=== PATIENT | female | born 1960 | race Caucasian/White ===

== ENCOUNTER 2024-07-23 09:30 | Day surgery (SDC) | payer MEDICARE, OTHER ==
[2024-07-23] VITALS (10 sets, daily range): BP systolic 120–142; BP diastolic 62–78; PULSE 64–77; RESP 14–20; TEMP 97.2–98.2
[~2024-07-23] VITALS: Ht 165.1 cm; Wt 58.5 kg
[2024-07-23] MEDS: 0.9%NACL 1000ML 1,000 ML IV ONE (09:54)
[2024-07-23] MEDS ORDERED: ALPR0.255 PO (09:57)
[2024-07-23] MEDS ORDERED: TIZA4CAP8 PO (09:57)
[2024-07-23] MEDS ORDERED: BUTA-256 PO (09:57)
[2024-07-23] MEDS ORDERED: TRAZ-187 PO (09:57)
[2024-07-23] MEDS ORDERED: DULO60CA64 PO (09:57)
[2024-07-23] MEDS ORDERED: proPOFol 10 MG/ML 20ML VIAL IV ONE (11:53)
[2024-07-23] MEDS ORDERED: FENTanyl CITRate PF 50 MCG/1 ML 2ML VIAL ONE (11:53)
[2024-07-23] MEDS ORDERED: ondanSETRON 4MG INJ ONE (11:54)
[2024-07-23] MEDS ORDERED: IOHEXOL-350 50ML VIAL IV ONE (12:54)
--- NOTE | 2024-07-23 14:59 | HMCIMG ---
ERCP BILI/PANC DUCT REASON: BILIARY Stricture, other ABNORMAL TUMOR MARKERS. COMPARISON: None TECHNIQUE: ERCP was performed by referring physician. FINDINGS: Please see procedure report for referring physician. IMPRESSION: ERCP.
[2024-07-23] MEDS: INDOMETHACIN 100 MG SUPP.RECT RC ONE (15:16)
[2024-07-24] MEDS ORDERED: LACT10SO85 PO (18:15)
== END 2024-07-23 13:58 | disposition home or self-care (01) ==
LOC: SUH 09:30 → DAH 09:30 → SUH 13:58
PROVIDERS: ATTEND Internal Medicine Gastroenterology
DX: K83.1 Obstruction of bile duct (principal); R97.8 Other abnormal tumor markers; K83.09 Other cholangitis; K83.9 Disease of biliary tract, unspecified; K92.2 Gastrointestinal hemorrhage, unspecified; M81.0 Age-related osteoporosis without current pathological fracture; F41.9 Anxiety disorder, unspecified; F32.A Depression, unspecified; Z90.710 Acquired absence of both cervix and uterus; Z98.42 Cataract extraction status, left eye; Z98.41 Cataract extraction status, right eye; Z79.899 Other long term (current) drug therapy
CPT/HCPCS: 43276; 74330; 43261; 43273; J3010; J7030; J2704; J2405; Q9967; A4649; A4215 ×2; A4223; A4657 ×2; A7002; A4222; A4221; A4663; C1875; A4606; C1769; C1773; 43274; 43275; J3490

== ENCOUNTER 2024-07-24 12:24 | Emergency (ER) | payer MEDICARE, OTHER ==
[~2024-07-24] VITALS: Ht 167.6 cm; Wt 59.0 kg
[~2024-07-24 12:24] MED LIST: ALPR0.255 PO; BUTA-256 PO; DULO60CA64 PO; TIZA4CAP8 PO; TRAZ-187 PO
[2024-07-24] MEDS: LACTATED RINGERS 1000ML 1,000 ML IV ONE (12:50)
--- NOTE | 2024-07-24 12:59 | ERN ---
General Chief Complaint: Abdominal Pain Stated Complaint: ABD PAIN POST OP SURGERY Time Seen by MD: 12:25 Source: patient History of Present Illness Initial Comments PATIENT IS A 63-YEAR-OLD FEMALE COMING IN WITH THE ABDOMINAL PAIN. PER PATIENT SHE WAS SENT OVER BY DR. Moralez. Patient states that she has a extensive history of problems with the bile duct. Patient states that this has been ongoing and multiple exams to be performed patient was sent over for possibility of a GI bleed. Allergies: Coded Allergies: No Known Allergies (Unverified Allergy, Unknown, 07/21/24) Home Meds Reported Medications Duloxetine HCl (Duloxetine HCl) 60 Mg Capsule.dr, 1 CAP PO DAILY for 30 Days, #30 CAP 0 Refills 07/23/24 Alprazolam (Alprazolam) 0.25 Mg Tablet, 1 TAB PO BID PRN for anxiety for 30 Days, #30 TAB 0 Refills 07/23/24 Butalb/Acetaminophen/Caffeine (Mjkwlo-Gixgdxlk-Kahx 50-325-40) 50 Mg-325 Mg-40 Mg Tablet, 1 EACH PO EVERY 8 HOURS, TAB 07/23/24 Trazodone HCl (Trazodone HCl) 100 Mg Tablet, 1 TAB PO HS for 30 Days, #30 TAB 0 Refills 07/23/24 Tizanidine HCl (Tizanidine HCl) 4 Mg Capsule, 4 MG PO BID, CAP 07/23/24 Past Medical History Past Medical History: No Pertinent History Past Surgical History: Appendectomy, Hysterectomy, Other Surgical History Other: ERCP ROS Dictation CONSTITUTIONAL: No chills, no fever, no weakness, no diaphoresis, no malaise. HEAD/FACE: No signs of trauma. EENT: No eye pain, no blurred vision, no tearing, no double vision, no ear pain, no ear discharge, no nose pain, no nasal congestion, no throat pain, no throat swelling, no mouth pain. RESPIRATORY: No cough, no orthopnea, no SOB, no stridor, no wheezing. CARDIOVASCULAR: No chest pain, no edema, no palpitations, no syncope. GASTROINTESTINAL/ABDOMINAL: abdominal pain, no constipation, no diarrhea, no nausea, no vomiting. GENITOURINARY: No abnormal discharge, no dysuria, no frequent urination, no hematuria. No complaints of pain in the genitals. MUSCULOSKELETAL: No back pain, no gout, no joint pain, no joint swelling, no muscle pain, no muscle stiffness, no neck pain. INTEGUMENTARY: No change in color, no change in hair/nails, no dryness, no lesion, no lumps, no rash. NEUROLOGICAL/PSYCH: No anxiety, not depressed, no emotional problem, no headache, no numbness, no pre-existing deficit, no history of seizures, no tremors, no weakness. HEMATOLOGIC/LYMPHATIC: Not anemic, no history of blood clots, no apparent bleeding, no bruising, glands not swollen. All Systems Negative, Except as Noted. Physical Exam Physical Exam Dictation VITAL SIGNS: Reviewed. GENERAL APPEARANCE: Alert, oriented x3, no acute distress, obese. HEAD AND FACE: Non-traumatic. EYES: PERRL, pink conjunctivas, eyelid no trauma, anterior chamber clear. EARS: Pinnas intact and no signs of trauma or erythema. Ear canals clear and no discharge. TMs no erythema. NOSE: No discharge, no bleeding. OROPHARYNX: Mouth normal, teeth no caries, tongue pink. Pharynx clear, no erythema. Tonsils no exudates, no abscesses noted. Mucous membrane moist. NECK: Supple, non-tender, no thyromegaly, no masses, no JVD, no bruits. BREAST: Deferred. CHEST: No tenderness, no crepitus, no paradoxical movement, no retractions. LUNGS: Clear, well-ventilated, symmetric, no rales, no wheezing, no rhonchi, no stridor, good breath sounds bilaterally. HEART: Regular rate, regular rhythm, no murmur, no gallops. VASCULAR: No peripheral edema. ABDOMEN: Soft, positive bowel sounds, nondistended, no guarding, right upper quadrant tenderness, no rebound, no masses no hepatomegaly, no splenomegaly, no Joaquin's sign, no hernias. RECTAL: Deferred. GENITAL: Deferred. NEUROLOGICAL: Normal speech, gross motor function intact, gross sensory function intact. MUSCULOSKELETAL: Neck nontender, full range of motion, back nontender, full range of motion. EXTREMITIES: Nontender, full range of motion. SKIN: Color pink, dry, no turgor, no rash, no lacerations, no abrasions, no contusions. LYMPHATICS: Deferred. Results Laboratory and Microbiology Lab and Micro Result Laboratory Tests Test 07/24/24 10:06 07/24/24 13:07 07/24/24 13:14 White Blood Count 5.2 K/uL (4.8-10.8) Red Blood Count 4.24 MIL/uL (4.00-5.50) Hemoglobin 12.9 g/dL (12.0-16.0) Hematocrit 40.4 % (36-48) Mean Corpuscular Volume 95.3 fL (79-99) Mean Corpuscular Hemoglobin 30.4 pg (27.0-33.0) Mean Corpuscular Hemoglobin Concent 31.9 g/dL (32.0-36.0) L Red Cell Distribution Width 13.2 % (11.0-15.5) Platelet Count 195 K/uL (130-400) Mean Platelet Volume 9.3 fL (7.5-10.5) Immature Granulocyte % (Auto) 0.2 % (0-1) Neutrophils (%) (Auto) 71.9 % (40.0-77.0) Lymphocytes (%) (Auto) 20.7 % (21.0-51.0) L Monocytes (%) (Auto) 6.0 % (3.0-13.0) Eosinophils (%) (Auto) 0.8 % (0.0-8.0) Basophils (%) (Auto) 0.4 % (0.0-5.0) Neutrophils # (Auto) 3.7 K/uL (1.8-7.7) Lymphocytes # (Auto) 1.1 K/uL (1.0-4.8) Monocytes # (Auto) 0.3 K/uL (0.1-1.0) Eosinophils # (Auto) 0.04 K/uL (0.00-0.70) Basophils # (Auto) 0.02 K/uL (0.00-0.20) Absolute Immature Granulocyte (auto 0.01 K/uL (0-1) Nucleated Red Blood Cells 0.0 % (0.0-0.19) Sodium Level 139 mmol/L (136-145) Potassium Level 5.0 mmol/L (3.5-5.1) Chloride Level 104 mmol/L (101-111) Carbon Dioxide Level 27 mmol/L (21-32) Blood Urea Nitrogen 10 mg/dL (7-18) Creatinine 0.9 mg/dL (0.5-1.0) Glomerular Filtration Rate Calc 71 mL/min (>90) Random Glucose 97 mg/dL (70-105) Total Calcium 8.9 mg/dL (8.5-10.1) Total Bilirubin 0.6 mg/dL (0.2-1.0) Aspartate Amino Transf (AST/SGOT) 40 U/L (10-37) H Alanine Aminotransferase (ALT/SGPT) 25 U/L (12-78) Alkaline Phosphatase 134 U/L (50-136) Total Creatine Kinase 150 U/L (21-232) Troponin I High Sensitivity 5 ng/L (4-50) Total Protein 6.1 g/dL (6.0-8.3) Albumin 3.2 g/dL (3.5-5.0) L Lipase 54 U/L (16-77) Urine Color LIGHT-YELLOW (YELLOW) Urine Appearance CLEAR (CLEAR) Urine pH 6.5 (5.0-8.0) Urine Specific [place] 1.013 (1.001-1.031) Urine Protein NEGATIVE mg/dL (NEGATIVE) Urine Glucose (UA) NEGATIVE mg/dL (NEGATIVE) Urine Ketones NEGATIVE mg/dL (NEGATIVE) Urine Occult Blood NEGATIVE (NEGATIVE) Urine Nitrate NEGATIVE (NEGATIVE) Urine Bilirubin NEGATIVE mg/dL (NEGATIVE) Urine Urobilinogen 0.2 mg/dL (0.2-1.0) Urine Leukocyte Esterase NEGATIVE [place]/uL Stool Occult Blood NEGATIVE (NEGATIVE) Labs Reviewed?: Yes EKG/XRAY/US/CT/MRI CT Scan Comment [address] [address] [place] [address] IMAGING REPORT Signed PATIENT: ANT BOWERS MR#: [id number] : 1960 SEX: F AGE: 63 LOCATION: ED ORDER 163 STATUS: REG ER REPORT#: [id number] SERVICE 163 REASON: abd pain ORDERING PHYSICIAN: GLADYS ABBOTT MD PROCEDURE: ABD PEL W - CT ABDOMEN/PELVIS W/CONTRAST CT ABDOMEN WITH CONTRAST. CT PELVIS WITH CONTRAST INDICATION: Abdominal pain; No relevant information related to this study was provided in patient's history by the ordering service. TECHNIQUE: Routine transaxial images using 5 mm slice thickness were obtained after the intravenous infusion of 100 mL of Omnipaque 350 without adverse effects. Oral contrast was not administered. Rectal contrast was not administered. Coronal and sagittal reformatted images acquired for interpretation. CT was performed with one or more of the following dose reduction techniques: Automated exposure control, adjustment of the mA and/or kV according to patient size, or use of iterative reconstruction technique. COMPARISON: None FINDINGS: ABDOMEN: Heart size is normal. Linear opacities at the right lung base suggesting minimal scarring and/or atelectasis. The liver is normal in size and smooth in contour without biliary duct dilation. 1.1 cm simple right hepatic lobe cyst. Mild left pneumobilia. Biliary stent is in place. The spleen is normal in size without lesions. The gallbladder appears normal. The pancreas appears normal without pancreatic duct dilation. The adrenal glands appear normal. 1.0 cm simple left renal cyst. Miniscule simple right renal cyst. Cortical nephrograms are symmetric and normal in appearance bilaterally. No evidence for intra-abdominal free air or organized fluid collection. No retrocrural, intraabdominal, or retroperitoneal lymphadenopathy identified. Mild calcific plaque is noted along the abdominal aortic and iliac vessel harrison without aneurysmal dilation or dissection. PELVIS: No evidence for free air or organized pelvic fluid collection. No significant pelvic adenopathy detected. Moderate stool burden. Terminal ileum appears normal. The appendix it is not well-visualized. The urinary bladder appears unremarkable. Chronic mild superior T12 and L1 vertebral body compression deformities includes a 1 cm Schmorl's node prolapsing into the superior endplate of T12. IMPRESSION: No relevant information related to this study was provided in patient's history by the ordering service. No evidence for any acute intra-abdominal or pelvic process. Additional minor findings, postsurgical changes, and pertinent negatives as reported. 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 Per Dr. Moralez patient had a recent biliary duct removal and patient yesterday. Per Dr. Moralez patient was to have a CT of the abdomen with the contrast per evaluation of any internal hemorrhage which was performed no acute findings were present. Patient will be advised to follow up with Dr. Moralez accordingly for further evaluation. Throughout ER visit patient has been stable patient was tolerated oral intake we will be discharged in stable condition. ED Course Orders Procedure Category Date Status Time Cbc With Differential LAB 07/24/24 Complete 12:41 Comprehensive LAB 07/24/24 Complete Metabolic Panel 12:41 Troponin I High LAB 07/24/24 Complete Sensitivity 12:41 Urinalysis Profile LAB 07/24/24 Complete 12:41 Occult Blood Stool LAB 07/24/24 Complete Single Only 12:41 Us Abdominal Ruq\Ltd US 07/24/24 Resulted 12:41 12 Lead Ekg Tracing- EKG 07/24/24 Complete Technical 12:41 Lactated Ringers PHA 07/24/24 Complete 1000ml (Lactated 13:00 Creatine Kinase, Total LAB 07/24/24 Complete 12:41 Chest 1vw RAD 07/24/24 Resulted 12:41 Lipase LAB 07/24/24 Complete 12:41 Ketorolac PHA 07/24/24 Complete Tromethamine 30mg/Ml 16:30 Ct Abdomen/Pelvis CT 07/24/24 Resulted W/Contrast 16:31 Iohexol (Omnipaque) PHA 07/24/24 Complete 17:37 Current Medications Medications (Trade) Dose Ordered Sig/Balaji Route PRN Reason Start Time Stop Time Status Last Admin Dose Admin Iohexol (Omnipaque) 35,000 mg STK-MED ONCE IV 07/24/24 17:37 07/24/24 17:37 DC Ketorolac Tromethamine (toRADol) 30 mg ONCE ONCE IVP 07/24/24 16:30 07/24/24 16:31 DC 07/24/24 16:31 Lactated Ringer's 1,000 ml @ 0 mls/hr ONCE ONCE IV 07/24/24 13:00 07/24/24 13:01 DC 07/24/24 12:50 Vital Signs Date Time Temp Pulse Resp B/P (MAP) Pulse Ox O2 Delivery O2 Flow Rate FiO2 07/24/24 17:00 98.2 65 16 113/74 96 Room Air* 0 21 07/24/24 15:30 98.2 65 16 118/68 96 Room Air* 0 21 07/24/24 13:58 65 16 115/72 98 Room Air* 0 21 07/24/24 12:35 98.8 76 20 98/72 96 Room Air 0 DX & DISP Disposition: Discharge Departure Impression: Primary Impression: Constipation Additional Impression: Encounter for assessment of wound Condition: Stable Scripts Lactulose (Lactulose) 10 Gram/15 Ml Solution 30 ML PO BID for constipation, #500 ML 0 Refills Prov: GLADYS ABBOTT MD 07/24/24 Additional Instructions: FOLLOW-UP WITH PRIMARY CARE PROVIDER IN 1 TO 2 DAYS. TAKE MEDICATIONS DIRECTED HERE IN THE EMERGENCY ROOM. OKAY TO CONTINUE HOME MEDICATIONS UNLESS OTHERWISE DISCUSSED DURING YOUR VISIT IN THE EMERGENCY ROOM TODAY. RETURN TO YOUR NEAREST EMERGENCY ROOM IF SYMPTOMS WORSEN OR IF THERE IS NO IMPROVEMENT. CALL 911 IF YOU NEED IMMEDIATE ASSISTANCE. TAKE TYLENOL [id number] NEEDED AND IF NO CONTRAINDICATIONS ARE PRESENT. INCREASE ORAL HYDRATION. A WOUND CULTURE OR URINE CULTURE WAS ORDERED HERE IN THE EMERGENCY ROOM DEPARTMENT PLEASE FOLLOW-UP WITH PRIMARY CARE PROVIDER AND ADVISE THEM TO GET REPEAT PORTS FROM OUR FACILITY. IF YOU HAD ANY SHAUNNA WRAP/SPLINTS THAT WERE APPLIED HERE, PLEASE DO NOT REMOVE THEM UNTIL YOU SEE YOUR PRIMARY CARE OR SPECIALTY. Referrals: Referrals: HILLARY LOONEY MD (PCP) Time of Disposition: 18:14 GLADYS ABBOTT MD Jul 24, 2024 12:58
--- NOTE | 2024-07-24 13:00 | EKG ---
[facility] Test Date: 2024-07-24 Test Time: 12:59:16 Pat Name: ANT BOWERS Department: [facility] Room: Gender: F [employer]: [id number] : 1960 Requested By: GLADYS ABBOTT Order Number: [id number] Reading MD: Mayra Dillon Measurements Intervals Martin Rate: 68 P: 64 PA: 189 QRS: 14 QRSD: 66 T: 27 QT: 353 QTc: 377 Interpretive Statements Sinus rhythm No previous ECG available for comparison Electronically Signed On 07-25-2024 10:59:57 CDT by Mayra Dillon Please click the below link to view image of tracing.
[2024-07-24 13:08] LABS: BASOPHILS # (AUTO) 0.02 K/uL (0.00-0.20); BASOPHILS % (AUTO) 0.4 % (0.0-5.0); EOSINOPHILS # (AUTO) 0.04 K/uL (0.00-0.70); EOSINOPHILS % (AUTO) 0.8 % (0.0-8.0); HEMATOCRIT 40.4 % (36-48); IMMATURE GRANULOCYTE ABSOLUTE 0.01 K/uL (0-1); LYMPHOCYTES # (AUTO) 1.1 K/uL (1.0-4.8); LYMPHOCYTES % (AUTO) 20.7 % (21.0-51.0); MEAN CORPUSCULAR HEMOGLOBIN 30.4 pg (27.0-33.0); MEAN CORPUSCULAR HGB CONC 31.9 g/dL (32.0-36.0); MEAN CORPUSCULAR VOLUME 95.3 fL (79-99); MONOCYTES # (AUTO) 0.3 K/uL (0.1-1.0); NEUTROPHILS # (AUTO) 3.7 K/uL (1.8-7.7); NEUTROPHILS % (AUTO) 71.9 % (40.0-77.0); PLATELET COUNT (AUTO) 195 K/uL (130-400); RED BLOOD CELL COUNT(AUTO) 4.24 MIL/uL (4.00-5.50); RED CELL DISTRIBUTION WIDTH 13.2 % (11.0-15.5); WHITE BLOOD COUNT (AUTO) 5.2 K/uL (4.8-10.8)
[2024-07-24 13:16] LABS: CREATININE 0.9 mg/dL (0.5-1.0)
[2024-07-24 13:20] LABS: ALBUMIN 3.2 g/dL (3.5-5.0); BILIRUBIN,TOTAL 0.6 mg/dL (0.2-1.0); TOTAL PROTEIN, SERUM 6.1 g/dL (6.0-8.3)
[2024-07-24 13:32] LABS: APPEARANCE,URINE CLEAR (CLEAR); BILIRUBIN,URINE NEGATIVE (NEGATIVE); COLOR,URINE LIGHT-YELLOW (YELLOW); GLUCOSE, URINE (UA) NEGATIVE (NEGATIVE); KETONES,URINE NEGATIVE (NEGATIVE); LEUKOCYTE ESTERASE ,URINE NEGATIVE Leu/uL (NEGATIVE); NITRATE,URINE NEGATIVE (NEGATIVE); OCCULT BLOOD,URINE NEGATIVE (NEGATIVE); PH,URINE 6.5 (5.0-8.0); PROTEIN,URINE NEGATIVE (NEGATIVE); UROBILINOGEN,URINE 0.2 mg/dL (0.2-1.0)
[2024-07-24 13:40] LABS: ADD UA MICROSCOPIC NO
--- NOTE | 2024-07-24 14:30 | HMCIMG ---
CHEST 1VW HISTORY: Chest pain COMPARISON: None FINDINGS: A frontal projection of the chest was obtained. No acute pulmonary infiltrates is seen. The heart is normal in size. Postop changes are seen of the cervical spine. No evidence of aortic calcification is seen. IMPRESSION: 1. No acute pulmonary infiltrate is seen.
--- NOTE | 2024-07-24 15:19 | HMCIMG ---
US ABDOMINAL RUQ\E\LTD HISTORY: ERCP, abdominal pain COMPARISON: None TECHNIQUE: Right upper quadrant abdominal ultrasound study was performed. FINDINGS: Liver measures 16.6 cm. There is right hepatic cyst measuring 13 x 12 x 15 mm. The visualized portion of the pancreas is within normal limits. The study is limited due to overlying bowel gas. No gallstone is seen. Common duct measures 7 mm. No evidence of gallbladder wall thickening is seen. Right kidney measures 10.1 x 4.3 x 4 cm. No hydronephrosis is seen of the right kidney. There is a simple right renal cyst measuring 8 x 12 x 8 mm. IMPRESSION: 1. No gallstones or ductal dilatation is seen. 2. No hydronephrosis is seen.
[2024-07-24] MEDS: ketOROlac 30MG VIAL (30MG/ML) IVP ONE (16:31)
[2024-07-24] MEDS ORDERED: IOHEXOL 350 MG/ML 100ML INFUS..BTL IV ONE (17:37)
--- NOTE | 2024-07-24 18:10 | HMCIMG ---
CT ABDOMEN WITH CONTRAST. CT PELVIS WITH CONTRAST INDICATION: Abdominal pain; No relevant information related to this study was provided in patient's history by the ordering service. TECHNIQUE: Routine transaxial images using 5 mm slice thickness were obtained after the intravenous infusion of 100 mL of Omnipaque 350 without adverse effects. Oral contrast was not administered. Rectal contrast was not administered. Coronal and sagittal reformatted images acquired for interpretation. CT was performed with one or more of the following dose reduction techniques: Automated exposure control, adjustment of the mA and/or kV according to patient size, or use of iterative reconstruction technique. COMPARISON: None FINDINGS: ABDOMEN: Heart size is normal. Linear opacities at the right lung base suggesting minimal scarring and/or atelectasis. The liver is normal in size and smooth in contour without biliary duct dilation. 1.1 cm simple right hepatic lobe cyst. Mild left pneumobilia. Biliary stent is in place. The spleen is normal in size without lesions. The gallbladder appears normal. The pancreas appears normal without pancreatic duct dilation. The adrenal glands appear normal. 1.0 cm simple left renal cyst. Miniscule simple right renal cyst. Cortical nephrograms are symmetric and normal in appearance bilaterally. No evidence for intra-abdominal free air or organized fluid collection. No retrocrural, intraabdominal, or retroperitoneal lymphadenopathy identified. Mild calcific plaque is noted along the abdominal aortic and iliac vessel harrison without aneurysmal dilation or dissection. PELVIS: No evidence for free air or organized pelvic fluid collection. No significant pelvic adenopathy detected. Moderate stool burden. Terminal ileum appears normal. The appendix it is not well-visualized. The urinary bladder appears unremarkable. Chronic mild superior T12 and L1 vertebral body compression deformities includes a 1 cm Schmorl's node prolapsing into the superior endplate of T12. IMPRESSION: No relevant information related to this study was provided in patient's history by the ordering service. No evidence for any acute intra-abdominal or pelvic process. Additional minor findings, postsurgical changes, and pertinent negatives as reported.
[2024-07-24] MEDS ORDERED: LACT10SO85 PO (18:15)
[2024-07-24 18:20] VITALS: BP 115/71; PULSE 68; RESP 16; TEMP 98.1; O2SAT 96
== END 2024-07-24 18:30 | disposition home or self-care (01) ==
LOC: EDH 12:24
DX: K59.00 Constipation, unspecified (principal); Z79.899 Other long term (current) drug therapy; Z90.49 Acquired absence of other specified parts of digestive tract; Z90.710 Acquired absence of both cervix and uterus; Z98.890 Other specified postprocedural states
CPT/HCPCS: 99285; 74177; 96374; 76705; 71045; 82270; 82550; 84484; 80053; 83690; 85025; 81003; 36415; 93005; J1885; J7120; Q9967